=== PATIENT | male | born 2000 | race Caucasian/White ===

== ENCOUNTER 2023-12-30 16:00 | Emergency (ER) | payer MEDICAID ==
[~2023-12-30] VITALS: Ht 188 cm; Wt 83.4 kg
[2023-12-30 18:08] VITALS: BP 132/67; PULSE 78; RESP 16; TEMP 98.1; O2SAT 99
== END 2023-12-30 18:09 | disposition home or self-care (01) ==
LOC: ER 16:01
DX: M25.532 Pain in left wrist (principal); W10.9XXA Fall (on) (from) unspecified stairs and steps, initial encounter; Y93.89 Activity, other specified; Y92.89 Other specified places as the place of occurrence of the external cause; Y99.8 Other external cause status
CPT/HCPCS: 73110; 99283

== ENCOUNTER 2024-01-10 07:55 | Emergency (ER) | payer MEDICAID ==
[~2024-01-10] VITALS: Ht 188 cm; Wt 81.8 kg
[2024-01-10 07:58] VITALS: BP 129/80; PULSE 69; RESP 16; TEMP 97.5; O2SAT 97
== END 2024-01-10 10:13 | disposition home or self-care (01) ==
LOC: ER 07:56
DX: M25.532 Pain in left wrist (principal)
CPT/HCPCS: 99281